=== PATIENT | male | born 1960 | race Caucasian/White ===

== ENCOUNTER 2018-02-13 15:47 | Emergency (ER) | payer OTHER ==
[~2018-02-13] VITALS: Ht 172.7 cm; Wt 97.5 kg
[~2018-02-13 15:47] MED LIST: DURICEF 500 MG CAPSULE PO; TRAM1TAB PO
[2018-02-13] MEDS ORDERED: LIPITOR20 MG PO (16:32)
[2018-02-13] MEDS ORDERED: NORVASC5 MG PO (16:33)
[2018-02-13] MEDS ORDERED: AVAPRO300 MG PO (16:33)
== END 2018-02-13 20:10 | disposition home or self-care (01) ==
LOC: ER 15:47
DX: N20.0 Calculus of kidney (principal); R10.31 Right lower quadrant pain